=== PATIENT | male | born 1990 | race Caucasian/White ===

== ENCOUNTER 2023-01-24 05:56 | Emergency (ER) | payer BC, SELFPAY ==
--- NOTE | 2023-01-24 06:02 | HMH.EDGENADL ---
Discharge Plan Disposition Patient Disposition: Home, Self-Care Chief Complaint: Abdominal Pain Referrals Follow up/Referrals: Gregorio Mcclure [Primary Care Provider] - See instructions Pastor Mayfield MD [Staff Physician] - See instructions Activity Restrictions/Add. Instructions Additional Instructions/Restrictions: At this time it was felt you are safe to be discharged home. If new or worsening symptoms please do not hesitate to return the emergency department. Please call and schedule follow-up with surgery for continued evaluation as you are able. Clinical Impressions Clinical Impression: Symptomatic cholelithiasis Instructions Patient Instructions: DI for Gallstones Discharge ED Provider: Francseco Ngo General Adult HPI <Grant Roque MD - Last Filed: 01/24/23 06:48> General Chief complaint: Abdominal Pain Stated complaint: Right side pain,N/V Time Seen by Provider: 01/24/23 05:58 History of Present Illness HPI narrative: 32-year-old male previously healthy presents with worsening intermittent right upper quadrant pain. He reports that he has often had right upper quadrant pain after eating, especially spicy or fatty foods. He ate Swazi last night and the pain this morning has been much more severe and persistent than normal. The intermittent symptoms have been worsening over the last few weeks. He denies any fevers chills. Reports some nausea without vomiting. Denies any smoking drug or alcohol use. Reports he has a umbilical hernia that he wants to get repaired. Related Data Allergies Allergy/AdvReac Type Severity Reaction Status Date / Time No Known Allergies Allergy Unverified 05/04/17 14:20 PFS <Grant Roque MD - Last Filed: 01/24/23 06:48> [facility] Disclaimer: The information contained in this section may have been updated after the patient was seen, as this information can be updated by other users. Social History (Updated 01/24/23 @ 06:48 by Grant Roque MD) Smoking Status: Unknown if ever smoked alcohol intake: never current occupational status: employed Travel in the last 8 weeks: None <Grant Roque MD - Last Filed: 01/24/23 06:48> ROS Obtained: Yes All systems reviewed & no additional complaints except as documented Physical Exam <Grant Roque MD - Last Filed: 01/24/23 06:48> General General appearance: alert and in no apparent distress Head Head exam: atraumatic and normocephalic Eye Eye exam: Present normal appearance, PERRL and EOMI ENT ENT exam: Present normal oropharynx and normal external ear exam Neck Neck exam: Present normal inspection and full ROM Chest Chest inspection: Present normal inspection and symmetric chest wall rise; Absent tenderness Respiratory Respiratory exam: Present normal lung sounds bilaterally; Absent respiratory distress Cardiovascular Cardiovascular exam: Present regular rate and normal rhythm Abdominal Exam Abdominal exam: Present soft, tenderness (Minimal, right upper quadrant) and hernia (Umbilical, easily reducible); Absent distention or guarding Extremities Exam Extremities exam: Present normal inspection; Absent edema or joint swelling Back Exam Back exam: Present normal inspection; Absent tenderness Neurological Exam Neurological exam: Present alert and oriented X3; Absent motor sensory deficit Psychiatric Psychiatric exam: Present normal affect and normal mood Skin Skin exam: Present warm, dry and normal color Lymphatic Lymphatic Findings: no adenopathy Medical Decision Making <Grant Roque MD - Last Filed: 01/24/23 06:48> Medical Records Medical records reviewed: Yes I reviewed the patient's medical records. Gonzalo Inquiry Pt receiving controlled substance: No Gonzalo was queried for this patient: No Vital Signs: 01/24/23 06:04 01/24/23 07:12 01/24/23 07:31 Temperature 97.6 F Temperature Source Oral Pulse Rate 69 67 Pulse Rate [Right Brachial] 83 Respiratory Rate 17 Blood Pressure 1
[2023-01-24 06:04] VITALS: BP 153/89; PULSE 83; RESP 17; TEMP 36.4; O2SAT 100; BMI 37.3
--- NOTE | 2023-01-24 06:07 | PC.NURSE ---
at bedside using US for fastscan
--- NOTE | 2023-01-24 06:14 | CT_ITS ---
PROCEDURE INFORMATION: Exam: CT Abdomen And Pelvis With Contrast Exam date and time: 01/24/2023 7:07 AM Age: 32 years old Clinical indication: Abdominal pain; Acute; Additional info: Ruq pain TECHNIQUE: Imaging protocol: Computed tomography of the abdomen and pelvis with contrast. Radiation optimization: All CT scans at this facility use at least one of these dose optimization techniques: automated exposure control; mA and/or kV adjustment per patient size (includes targeted exams where dose is matched to clinical indication); or iterative reconstruction. Contrast material: ISOVUE; Contrast volume: 75 ml; Contrast route: IV; REPORTING DATA: Count of CT and Cardiac NM exams in prior 12 months: This patient has received 0 known CTs and 0 known cardiac nuclear medicine studies in the 12 months prior to the current study. COMPARISON: ABDPELW/O CT ABD PELVIS W/O CONTRAST 02/21/2017 4:46 AM FINDINGS: Liver: Normal. No mass. Gallbladder and bile ducts: The gallbladder is not distended there is the calculus in the dependent portion of the gallbladder that was present in 2017 and is stable. . Pancreas: Normal. No ductal dilation. Spleen: Splenomegaly 15.5 cm. Adrenal glands: Normal. No mass. Kidneys and ureters: Normal. No hydronephrosis. Stomach and bowel: Low-attenuation bowel wall thickening is seen throughout the colon consistent with colitis versus decompressed bowel Differential diagnosis includes infectious and inflammatory etiologies.. Appendix: Normal appendix Intraperitoneal space: Unremarkable. No free air. No significant fluid collection. Vasculature: Unremarkable. No abdominal aortic aneurysm. Lymph nodes: Unremarkable. No enlarged lymph nodes. Urinary bladder: Unremarkable as visualized. Reproductive: Unremarkable as visualized. Bones/joints: Unremarkable. No acute fracture. Soft tissues: Umbilical hernia contains inflamed fat IMPRESSION: 1. Low-attenuation bowel wall thickening is seen throughout the colon consistent with colitis versus decompressed bowel Differential diagnosis includes infectious and inflammatory etiologies.. 2. The gallbladder is not distended there is the calculus in the dependent portion of the gallbladder that was present in 2017 and is stable. . 3. Splenomegaly 15.5 cm.
[2023-01-24 06:30] LABS: Basophils % 0.6 % (0.1-2.0); Eosinophils # 0.1 K/mm3 (0.0-0.4); Eosinophils % 2.3 % (0.1-12.0); Hemoglobin 16.6 g/dL (14.1-18.0); Lymphocytes # 1.6 K/mm3 (0.7-4.5); Lymphocytes % 25.8 % (10-50); Mean Corpuscular HGB Conc 32.6 g/dL (31.8-35.4); Mean Platelet Volume 8.9 fl (7.4-10.4); Monocytes # 0.4 K/mm3 (0.1-1.0); Monocytes % 6.1 % (1.7-9.3); Neutrophils % 65.3 % (37.0-80.0); Platelet Count 178 K/mm3 (142-424); Red Blood Count 5.93 M/mm3 (4.60-6.20); Red Cell Distribution Width 12.4 % (11.5-17.5); White Blood Count 6.2 K/mm3 (4.8-10.8)
[2023-01-24 06:37] LABS: Alanine Aminotransferase 28 U/L (12-78); Albumin Level 4.4 g/dl (3.5-5.0); Albumin/Globulin Ratio 1.2 (1.1-1.8); Alkaline Phosphatase 93 U/L (38-126); Anion Gap 13.4 mEq/L (5-15); Aspartate Amino Transferase 25 U/L (17-59); Bilirubin,Total 0.4 mg/dl (0.2-1.3); Blood Urea Nitrogen 17 mg/dl (9-20); Calcium 9.3 mg/dl (8.4-10.2); Carbon Dioxide 29 mmol/L (22.0-30.0); Chloride 101 mmol/L (98-107); Creatinine Clearance Estimated 157 mL/min (50-200); Estimated Glomerular Filt Rate 71 ml/min (>60); GFR (African American) 85 ML/MIN (>60); Globulin 3.8 g/dL (1.3-3.2); Glucose 118 mg/dl (74-100); Lipase 61 U/L (23-300); Potassium 4.4 mmoL/L (3.5-5.1); Sodium 139 mmol/L (136-145); Total Protein,Serum 8.2 g/dl (6.3-8.2)
--- NOTE | 2023-01-24 07:08 | PC.NURSE ---
Pt gone to RAD
[2023-01-24 07:12] VITALS: BP 137/85; PULSE 69; O2SAT 96
--- NOTE | 2023-01-24 07:12 | PC.NURSE ---
Pt returned from RAD
[2023-01-24 07:31] VITALS: BP 129/75; PULSE 67; O2SAT 97
[2023-01-24 08:00] VITALS: BP 120/69; PULSE 67; O2SAT 98
--- NOTE | 2023-01-24 08:23 | PC.NURSE ---
notified dr. howell pt ct results are back
--- NOTE | 2023-01-24 08:24 | PC.NURSE ---
Dr. Ngo at BS to update pt of results
[2023-01-24 08:34] VITALS: BP 120/69; PULSE 63; RESP 18; TEMP 36.7; O2SAT 98
== END 2023-01-24 08:35 | disposition home or self-care (01) ==
PROVIDERS: Emergency Provider Emergency Medicine; PCP Family Medicine
DX: K80.80 Other cholelithiasis without obstruction (principal)
CPT/HCPCS: 74177; 80053; 83690; 85025; 99285; Q9967

== ENCOUNTER 2023-03-04 06:02 | Day surgery (SDC) | payer BC, SELFPAY ==
[2023-03-02 11:04] VITALS: BMI 37.3
[2023-03-04] VITALS (10 sets, daily range): BP systolic 109–145; BP diastolic 68–85; PULSE 79–95; RESP 14–18; TEMP 36.1–36.6; O2SAT 93–97
--- NOTE | 2023-03-04 08:20 | P.PNANES_ITS ---
[facility] Disclaimer: The information contained in this section may have been updated after the patient was seen, as this information can be updated by other users. Medical History Gallbladder disease Surgical History No significant past surgical history Family History Other No significant family history Social History Smoking Status: Never smoker alcohol intake: current substance use type: denies use current occupational status: employed Travel in the last 8 weeks: None [facility] Anesthesia Checklist Patient Identification Patient Identification: Arm Band and Verbal (Name & ) Structural Data Admitted From: Home Planned Operative Procedure/s: Lap cholecystectomy Consent for Planned Operative Procedure(s) Verified: Yes NPO Status Verified Time NPO: 00:00 Additional verifications Anesthesia Reactions: No Hx Blood Transfusions: No Blood Transfusion Reaction: No Airway Assessment Mallampati Score:: Class IV C-Spine Mobility Assessed: Yes TMJ Mobility Assessed: Yes Dentition: Poor Dentition (One chipped tooth in front) Neurological Assessment Level of Consciousness: Awake Hx Seizures: No Numbness or tingling in extremities: No Anesthesia Plan Anesthesia Risk discussed: Yes Anesthesia Plan: Verified ASA Class: II Anesthesia Type: General
--- NOTE | 2023-03-04 08:58 | EXP.OP.NOTE ---
Date of procedure: 03/04/23 Pre-op Diagnosis:: Symptomatic cholelithiasis Post-op Diagnosis:: Chronic calculus cholecystitis Procedure performed:: Laparoscopic cholecystectomy Surgeon:: Ra Langston MD VIDEO SURVEILLANCE TECHNICIAN:: Angelia Boswell Anesthesia: GETA Estimated blood loss (mL): 15 Operative findings:: Profound infundibular thickening Severe pericholecystic fat stranding Dome down approach with Endoloops utilized secondary to above findings Gallbladder transection at the infundibulum secondary to above findings Umbilical hernia with incarcerated omentum (reduced and primarily closed as part of trocar closure) Operative note:: After informed consent was obtained, the patient was taken to the operating room and placed in the supine position. General anesthesia was induced and the abdomen was prepped and draped in a sterile fashion. Due to the chronically-incarcerated umbilical hernia the decision was made to proceed with upper abdominal access . After infiltration with local anesthetic a stab incision was made in the left upper quadrant. A Veress needle was placed in position. The abdomen was insufflated. A 5 mm optical trocar was placed in the mid right upper quadrant. Under direct visualization, an additional 5 mm trocar was placed in the right flank. A third 5 mm trocar was placed in the subxiphoid position just to the left of midline. The umbilical hernia was visualized. Incarcerated omentum was bluntly reduced. An incision overlying the umbilicus/umbilical hernia was then made sharply with scalpel. The 12 mm trocar was placed in position. Attention was then turned to cholecystectomy. The gallbladder was elevated up and over the liver margin. Dense adhesions were taken down with combination of blunt dissection and harmonic gena. Severe tissue thickening noted as the infundibulum was approached. The tissue around what appeared to be cystic duct was carefully dissected. 3 clips were placed proximally and the apparent duct was transected with harmonic gena. Inspection then revealed additional thickened infundibulum posterior to the transected duct. Additional dissection approaching the remainder of the cystic duct/infundibulum was deemed unwarranted/unsafe. A window was made at the infundibulum with a combination of blunt dissection and harmonic gena. Harmonic gena were then utilized to dissect the gallbladder away from the liver margin. Endoloops (x2) were then placed at the infundibular margin. The gallbladder was transected just distal to the site and then pllaced in a retrieval bag prior to being removed through the supraumbilical trocar site. The right upper quadrant was thoroughly irrigated. No active bleeding or bile leak was noted. Fascia at the umbilical trocar site/umbilical hernia was reapproximated utilizing 0 Ethibond. The remaining trocars were removed. All wounds were irrigated and skin was closed with 4-0 Monocryl in a mattress fashion to facilitate hemostasis. The patient's anesthetic agents were reversed and extubation was completed prior to transfer to recovery in stable condition. Condition: stable Disposition: PACU Specimens:: Gallbladder and contents Complications:: No immediate
--- NOTE | 2023-03-04 09:14 | P.PNANES_ITS ---
[facility] Anesthesia Record Part I Anesthesia Record I Intake, IV Amount: 400 Hydration: Adequate Estimated blood loss (mL): 15 Urine output (mL): 0 Blood Pressure: 145/68 SaO2: 93 Pulse Rate: 95 Airway Patency: Patent Respiratory Rate: 14 Temperature: 97.8 F Patient is:: Awake Stable to PACU at:: 09:09
--- NOTE | 2023-03-05 20:03 | EXP.ANES.II ---
[facility] Anesthesia Record Part II Anesthesia Record Part II Discharge Time: 09:39 Destination: Surgical Day Care (OP Surgery) PACU nurse assessment reviewed?: Yes Patient Condition:: Good Anesthesia Complications:: None Swallowing reflex intact?: Yes Airway Patency: Patent Cyanosis?: No Blood Pressure: 109/81 SaO2: 94 Respiratory Rate: 16 Pulse Rate: 84 Temperature: 97.1 F Mental Status: Alert & Oriented Pain level:: 0 Nausea and/or vomitting:: None Intake, IV Amount: 0 Hydration: Adequate
[2023-03-05 20:04] VITALS: BP 109/81; PULSE 84; RESP 16; TEMP 36.2; O2SAT 94
== END 2023-03-04 10:23 | disposition home or self-care (01) ==
PROVIDERS: PCP Family Medicine; Visit Provider Surgery
PROC: 0FT44ZZ Resection of Gallbladder, Percutaneous Endoscopic Approach (ICD-10-PCS; CPT 47562; principal; 2023-03-04 07:30)
DX: K81.1 Chronic cholecystitis (principal); K42.0 Umbilical hernia with obstruction, without gangrene
CPT/HCPCS: 49591; 47562; 96374; J0131; J2405

== ENCOUNTER 2023-03-06 01:04 | Emergency (ER) | payer BC, SELFPAY ==
[2023-03-06 01:06] VITALS: BP 154/96; PULSE 83; RESP 16; TEMP 36.6; O2SAT 98; BMI 35.9
[2023-03-06 01:30] VITALS: BP 141/82; PULSE 79; O2SAT 98
--- NOTE | 2023-03-06 01:36 | CT_ITS ---
PROCEDURE INFORMATION: Exam: CT Abdomen And Pelvis With Contrast Exam date and time: 03/06/2023 1:58 AM Age: 33 years old Clinical indication: Abdominal pain; Prior surgery; Surgery date: Post-operative (0-2 days); Surgery type: Gallbladder surgery on 03-04-23; Additional info: Ruq pain S/P complicated monica TECHNIQUE: Imaging protocol: Computed tomography of the abdomen and pelvis with contrast. Radiation optimization: All CT scans at this facility use at least one of these dose optimization techniques: automated exposure control; mA and/or kV adjustment per patient size (includes targeted exams where dose is matched to clinical indication); or iterative reconstruction. Contrast material: ISOVUE; Contrast volume: 75 ml; Contrast route: IV; REPORTING DATA: Count of CT and Cardiac NM exams in prior 12 months: This patient has received [address] and 0 known cardiac nuclear medicine studies in the 12 months prior to the current study. COMPARISON: CT ABDOMEN PELVIS W CON 01/24/2023 7:07 AM FINDINGS: Lungs: There are areas of subpleural reticulation throughout the visualized lungs which are nonspecific. Liver: Normal. No mass. Gallbladder and bile ducts: The patient is status post cholecystectomy. Small volume of fluid in the cholecystectomy bed which may be postsurgical. Pancreas: The pancreas is of normal size and morphology, without evidence of masses, cysts, or calcifications. The pancreatic duct is not dilated. Spleen: The spleen is normal in size and attenuation. No splenic masses or cysts are observed. Adrenal glands: The adrenal glands appear normal. Kidneys and ureters: Both kidneys are of normal size and show uniform attenuation. There are no renal masses, cysts, or calculi. The adrenal glands appear normal. Stomach and bowel: The stomach, small bowel, and colon are well-distended and show no evidence of wall thickening, masses, or obstruction. Appendix: No evidence of appendicitis. Intraperitoneal space: There is some stranding in the lower abdominal mesentery (image 79 series 3), favored to be related to recent laparoscopic procedure. Vasculature: Multiple pelvic phleboliths are present. Lymph nodes: No enlarged or pathological lymph nodes are identified in the abdomen or pelvis. Urinary bladder: Unremarkable as visualized. Reproductive: No significant pathology. Bones/joints: The visualized osseous structures of the abdomen and pelvis appear intact and normal for patient age with no evidence of fractures or lytic or sclerotic lesions. Soft tissues: There are postsurgical changes of the ventral abdominal wall. IMPRESSION: Small volume of fluid in the cholecystectomy bed which may be postsurgical.
--- NOTE | 2023-03-06 01:38 | HMH.EDGENADL ---
Discharge Plan Disposition Patient Disposition: Home, Self-Care Condition: Good Prescriptions Prescriptions: No Action hydrocodone-acetaminophen 5-325 mg tablet 1 tab PO Q6H PRN (Reason: post-op pain) Qty: 17 0RF Referrals Follow up/Referrals: Gregorio Mcclure [Primary Care Provider] - See instructions Activity Restrictions/Add. Instructions Additional Instructions/Restrictions: You were evaluated in the emergency department today. Please continue taking your medications at home as prescribed by your surgeon. Follow-up with him over the next 4 days for reassessment. Return to the emergency department for any new or worsening symptoms. Clinical Impressions Clinical Impression: Post-operative pain, S/P cholecystectomy Instructions Patient Instructions: DI for Acute Abdominal Pain, DI for Laparoscopic Cholecystectomy Discharge ED Provider: Lisbeth Carranza General Adult HPI General Chief complaint: Abdominal Pain Stated complaint: GB surgery 03/04/23 at [facility] now with discomfort Time Seen by Provider: 03/06/23 01:10 Mode of Arrival: Ambulatory Source of Information: Patient Limitations: No Limitations Description of Symptoms (Recalled from ER Triage Doc. by RN): pt reports having Gallbladder surgery on 03/04/23, states started having pain around 2230 and was told to be checked out if pain started due to being told by Dr Castano he had difficulty removing gallbladder. History of Present Illness HPI narrative: This patient is a 33-year-old male with a history of cholecystectomy 03/04/2023 presenting to the emergency department for evaluation with concern for acute worsening of postoperative pain. Patient reports that his pain has been well controlled since the surgery without significant pain until around 10:00 PM tonight, when he woke up with severe pain in the right upper quadrant radiating across his upper abdomen into his upper back. It was not controlled with Solon, which she was sent home with. Given this, he came in for further evaluation. He notes that he was told by his surgeon, Dr. Langston, that the operation was complicated given his anatomy and should he have uncontrolled pain, he should come in for evaluation. He denies any fevers, chills, vomiting, changes bowel movements, rashes, or swelling. He notes that he did have return of bowel function, and he is able to tolerate oral intake. Prior to going to bed tonight, he ate tortellini with ground beef. He states his pain is currently significantly improved and he is resting company without significant symptoms at this time. Related Data Previous Rx's Medication Instructions Recorded hydrocodone 5 mg-acetaminophen 325 1 tab PO Q6H PRN post-op pain #17 03/04/23 mg tablet tabs Allergies Allergy/AdvReac Type Severity Reaction Status Date / Time No Known Allergies Allergy Verified 03/04/23 06:26 [facility] Disclaimer: The information contained in this section may have been updated after the patient was seen, as this information can be updated by other users. Medical History Gallbladder disease Surgical History No significant past surgical history Family History Other No significant family history Social History Smoking Status: Never smoker alcohol intake: current substance use type: denies use current occupational status: employed Travel in the last 8 weeks: None ROS Obtained: Yes All systems reviewed & no additional complaints except as documented Physical Exam General General appearance: alert and in no apparent distress Head Head exam: atraumatic and normocephalic Eye Eye exam: Present normal appearance, PERRL and EOMI ENT ENT exam: Present normal exam, normal oropharynx, mucous membranes moist and normal externa
[2023-03-06 01:43] LABS: Microscopic, Urine URINE MICROSCOPIC (MICROSCOPIC)
[2023-03-06 01:44] LABS: Basophils % 0.3 % (0.1-2.0); Eosinophils # 0.1 K/mm3 (0.0-0.4); Hematocrit 44.4 % (42.0-52.0); Hemoglobin 15.3 g/dL (14.1-18.0); Lymphocytes # 1.8 K/mm3 (0.7-4.5); Lymphocytes % 19.4 % (10-50); Mean Corpuscular HGB Conc 34.4 g/dL (31.8-35.4); Mean Corpuscular Hemoglobin 30.1 pg (27.0-31.2); Mean Corpuscular Volume 87.5 fl (80-94); Mean Platelet Volume 9.6 fl (7.4-10.4); Monocytes # 0.5 K/mm3 (0.1-1.0); Neutrophils # 6.7 K/mm3 (1.8-7.8); Neutrophils % 74.2 % (37.0-80.0); Platelet Count 145 K/mm3 (142-424); Red Blood Count 5.08 M/mm3 (4.60-6.20); Red Cell Distribution Width 12.5 % (11.5-17.5); White Blood Count 9.1 K/mm3 (4.8-10.8)
[2023-03-06 01:48] LABS: Alanine Aminotransferase 52 U/L (12-78); Albumin Level 4.2 g/dl (3.5-5.0); Albumin/Globulin Ratio 1.3 (1.1-1.8); Alkaline Phosphatase 84 U/L (38-126); Anion Gap 13.7 mEq/L (5-15); Aspartate Amino Transferase 70 U/L (17-59); Bilirubin,Total 0.5 mg/dl (0.2-1.3); Blood Urea Nitrogen 13 mg/dl (9-20); Calcium 9.2 mg/dl (8.4-10.2); Carbon Dioxide 27 mmol/L (22.0-30.0); Chloride 100 mmol/L (98-107); Creatinine Clearance Estimated 180 mL/min (50-200); Estimated Glomerular Filt Rate 87 ml/min (>60); GFR (African American) 105 ML/MIN (>60); Globulin 3.2 g/dL (1.3-3.2); Glucose 128 mg/dl (74-100); Lipase 62 U/L (23-300); Potassium 3.7 mmoL/L (3.5-5.1); Sodium 137 mmol/L (136-145); Total Protein,Serum 7.4 g/dl (6.3-8.2)
[2023-03-06 01:50] LABS: Lactic Acid 1.1 mmol/L (0.7-2.1)
--- NOTE | 2023-03-06 01:51 | PC.NURSE ---
let radiology know the labs were back and he is able to go to CT
[2023-03-06 01:53] LABS: Appearance,Urine CLEAR (Clear); Bilirubin,Urine Negative (Negative); Blood, Urine Negative (Negative); Color,Urine YELLOW (Yellow); Glucose,Urine (UA) Negative (Negative); Ketones,Urine Negative (Negative); Leukocyte Esterase,Urine Negative (Negative); Nitrate,Urine Negative (Negative); PH,Urine 6.5 (5.0-8.5); Protein,Urine Negative (Negative); Urobilinogen,Urine 0.2 EU/dl (0.2)
[2023-03-06 01:54] LABS: Amorphous Sediment,Urine Trace /lpf; Bacteria,Urine Trace /lpf; Squamous Epithelial Cell,Urine Occasional #/hpf (0-5); WBC,Urine Occasional #/hpf (0-3)
[2023-03-06 02:23] VITALS: BP 124/79; PULSE 83; O2SAT 98
[2023-03-06 02:54] VITALS: BP 125/71; PULSE 79; RESP 16; TEMP 36.6; O2SAT 100
== END 2023-03-06 02:55 | disposition home or self-care (01) ==
PROVIDERS: Emergency Provider Emergency Medicine; PCP Family Medicine
DX: G89.18 Other acute postprocedural pain (principal); Z90.49 Acquired absence of other specified parts of digestive tract
CPT/HCPCS: 74177; 80053; 81001; 83605; 83690; 85025; 99284; Q9967